=== PATIENT | female | born 1950 | race Caucasian/White ===

== ENCOUNTER 2017-06-17 11:45 | Inpatient (IN) | payer MEDICARE, OTHER ==
[2017-06-17] MEDS ORDERED: Ondansetron INJ* 2 MG/ML VIAL IV ONE (13:15)
[2017-06-17] MEDS ORDERED: NS 0.9% 1000 ML* 1,000 ML IV ONE (13:15)
[2017-06-17] MEDS ORDERED: HYDROmorphone* 1 MG/ML 1 ML CARPUJECT IV ONE (13:15)
[2017-06-17 13:55] LABS: Hematocrit 48 % (35-47); Hemoglobin 16.2 g/dl (12.0-16.0); Mean Corpuscular HGB Conc 34 g/dl (31-36); Mean Corpuscular Hemoglobin 33 pg (27-31); Mean Corpuscular Volume 96 fL (80-97); Mean Platelet Volume 8 um3 (7.4-10.4); Red Blood Count 4.92 10^6/ul (4.0-5.4); Red Cell Distribution Width 14 % (10.5-15); White Blood Count 8.5 10^3/ul (3.5-10.8)
--- NOTE | 2017-06-17 13:56 | RAD ---
Indication: Diffuse abdominal pain. Flat and upright views of the abdomen demonstrates no free air. Fluid-filled stomach is noted. Dilated loop of bowel are noted in the left upper quadrant small bowel with a paucity of gas in the colon. I cannot totally exclude small bowel obstruction. IMPRESSION: Dilated loops of small bowel with air-fluid levels noted. Dilated stomach with fluid. I cannot totally exclude small bowel obstruction as there is a paucity of gas in the colon.
[2017-06-17 14:07] LABS: Albumin 4.1 g/dL (3.2-5.2); BUN/Creatinine Ratio 18.1 (8-20); C Reactive Protein 10.78 mg/L (< 5.00); Calcium 9.4 mg/dL (8.6-10.3); EGFR African American 103.6 (>60); EGFR Non-African American 80.6 (>60); Globulin 2.7 g/dL (2-4); Potassium 3.8 mmol/L (3.5-5.0); Total Protein 6.8 g/dL (6.4-8.9)
[2017-06-17] MEDS ORDERED: Iohexol 300* (CONTRAST) 10 ML SDV IV ONE (14:57)
[2017-06-17] MEDS ORDERED: HYDROmorphone* 1 MG/ML 1 ML CARPUJECT IV SLOW PU PRN (15:44)
[2017-06-17] MEDS ORDERED: Ondansetron INJ* 2 MG/ML VIAL IV PRN (15:45)
[2017-06-17 16:23] LABS: Urine Bacteria Absent (Absent); Urine Bilirubin Negative (Negative); Urine Glucose Negative (Negative); Urine Nitrite Negative (Negative)
--- NOTE | 2017-06-17 16:57 | RAD ---
INDICATION: Abdominal pain since yesterday. Vomiting episode yesterday. Question small bowel obstruction. COMPARISON: June 17, 2017 abdomen radiographs. TECHNIQUE: Multidetector CT images were obtained from the lung bases to the ischial tuberosities with 79 mL Omnipaque 300 IV and oral contrast. Multiplanar reformation. REPORT: Minimal bilateral dependent subsegmental atelectasis. Decreased density of the liver consistent with fatty infiltration. No focal hepatic lesions or biliary dilatation. No CT abnormality of the gallbladder. Mildly atrophic pancreas without suspicious finding. Unremarkable spleen. Negative for CT abnormality of the upper GI. Mid to distal high-grade partial versus complete small bowel obstruction likely relates to a small bowel anastomosis in the LEFT abdomen. At the level of the anastomosis there is a small bowel loop dilated up to 7.4 cm diameter. Associated mild perienteric inflammatory change. Negative for pneumatosis. Decompressed colon with few diverticula without suggestion of diverticulitis. Small volume of nonloculated ascites. Negative for free air. Infra umbilical midline laparotomy scar. No significant hernias evident. Normal adrenal glands. Unremarkable kidneys with symmetric nephrograms and pyelograms no abnormality along the course of the nondilated ureters. Largely decompressed urinary bladder limiting assessment. Post hysterectomy. No visualized adnexal region lesions. Negative for lymphadenopathy. Atherosclerotic plaque of normal diameter abdominal aorta and iliac arteries. Flat decompressed IVC indicating low volume state. Negative for suspicious osseous lesions. IMPRESSION: 1. High-grade partial versus complete small bowel obstruction with suggestion of probable transition point at the level of a small bowel anastomosis in the LEFT abdomen. No discrete obstructing lesion evident. 2. Negative for free air. Small volume of nonloculated ascites. 3. Decompressed IVC indicating low volume state.
[2017-06-17] MEDS ORDERED: KETAMINE HCL* 50 MG/ML 10 ML VIAL ONE (18:15)
[2017-06-17] MEDS ORDERED: fentaNYL* 50 MCG/ML 5 ML VIAL (250 MCG VIAL) ONE (18:15)
[2017-06-17] MEDS ORDERED: Midazolam* 1 MG/ML 5 ML VIAL (5 MG) ONE (18:15)
[2017-06-17] MEDS ORDERED: Atracurium* 10 MG/ML 10 ML VIAL ONE (18:16)
--- NOTE | 2017-06-17 18:52 | HP ---
AMENDED REPORT NOW INCLUDES COSIGNER DESIGNATION - ESIGNED BEFORE ADJUSTMENT ADMISSION HISTORY AND PHYSICAL: DATE OF ADMISSION: 06/17/17 ATTENDING SURGEON: Dr. Bernabe Pinto * (DICTATED BY YANDY HUI) CHIEF COMPLAINT: Abdominal pain. HISTORY OF PRESENT ILLNESS: This is a 67-year-old female with 2 past episodes of small bowel obstruction, both requiring exploratory laparotomy including 1 episode requiring small bowel resection. She states that beginning yesterday afternoon, she began to experience crampy abdominal pain. This persisted through last night and persisted this morning such that she presented to the ED. Pain is across the abdomen with some increase on the left side. She has had nausea, and vomited once at home which she states was bilious and without blood. On a scale of 1 to 10, she describes her pain at peak as being 12, but at present, only 1 after receiving Dilaudid. She feels that the pain is gradually coming back. She had a normal bowel movement yesterday, but since then has passed little or no flatus. She last ate yesterday. Her previous surgical history includes a laparoscopic assisted vaginal hysterectomy. She required exploratory laparotomy in 2004 with what she describes as 12 inches of small bowel resected at that time. She had a second exploratory laparotomy in February of this year in [place], [place], at which time lysis of adhesions was performed. She states that her current symptoms feel somewhat similar to her past episodes. PAST MEDICAL HISTORY: Recurrent small bowel obstruction as noted above. Previously treated for hypertension, but not at the present time. She is treated for hyperlipidemia. She has a past history of depression. She has a history of asthma without recent exacerbations. PAST SURGICAL HISTORY: As described above. The hysterectomy was subtotal, i.e. she still has ovaries and it was for benign disease. She had a prior tubal ligation. No reported surgical or anesthesia complications. CURRENT MEDICATIONS: 1. Lipitor 20 mg once daily. 2. Vitamin D 2000 IU once daily. 3. Lactaid p.r.n. 4. Imodium p.r.n. (does not use frequently). 5. Unspecified bronchodilator p.r.n. (has not needed recently). DRUG ALLERGIES: AMOXICILLIN and BACTRIM, both cause vomiting. MORPHINE does not work for her. FAMILY HISTORY: Noncontributory in terms of anesthesia problems, bleeding or clotting disorder. SOCIAL HISTORY: Patient lives with her daughter and son-in-law and grandchild in [place]. She is here visiting her family near [place], [place]. She is a current smoker of approximately one-half pack per day. She is encouraged to quit. She drinks approximately 1 drink per month. She denies other recreational drug use. REVIEW OF SYSTEMS: General: No recent constitutional symptoms or acute illnesses other than described in the HPI. She did however have an injury to her right fourth toe (fracture) as she was preparing to leave [place] to come here for her visit and has her toes kylie taped and is using a platform walker. Cardiovascular: No chest pain, palpitations, history of NH or angina. Respiratory: No recent exacerbations of her asthma. Active smoking history as noted. GI: As above per HPI. I did not inquire about colonoscopy. : No dysuria or hematuria. ACTIVITIES THERAPIST: She no longer has pelvic exams. She states it has been a few years since her last breast exam and mammogram, but no interval problems reported. Endocrine: No diabetes or thyroid dysfunction. Musculoskeletal: Recent right fourth toe fracture as noted above. Neuro/psych: No current active depression symptoms. PHYSICAL EXAMINATION GENERAL: Well-nourished, slightly built female, in no acute distress though visibly shaking on the ED stretcher. VITAL SIGNS: Weight 130 pounds. Temperature 97.6, blood pressure 153/73, pulse 102, respirations 20, room air saturation 95%. HEENT: Pupils equal, round and reactive. EOMs intact. No conjunctival pallor or scleral icterus. Oropharynx: Mucous membranes dry. No intraoral lesions. NECK: No lymphadenopathy, thyromegaly or masses. LUNGS: Clear to auscultation. No rales or wheezes. HEART: Regular rate and rhythm. No murmur noted. ABDOMEN: Mildly distended, well-healed lower midline incision. Bowel sounds are present with occasional tinkles and rushes. Abdomen is soft with mild-to- moderate tenderness on the left, but without palpable masses or organomegaly. The remainder of the abdomen is relatively soft, nontender. No palpable groin hernias. GENITALIA/RECTAL: Not done. BACK: No spinous process or CVA tenderness. EXTREMITIES: No edema. Platform shoe present on the right. Toes not examined. SKIN: Warm and dry. No suspicious rashes or lesions. LABORATORY DATA: Of note, white blood cell count 8500, hemoglobin 16.2, hematocrit 48. Her electrolytes and renal function are normal. Her lactic acid is normal at 1.2. CRP is mildly elevated at 11. Lipase and liver function tests are normal. Initial plain film was done followed by a CT with contrast showing dilated small bowel loops with air fluid levels on the right side of the abdomen. There is a large 7+ cm dilated loop of small bowel at the point of prior anastomosis with concern for closed loop obstruction. The findings and scan have been reviewed by Dr. Pinto. He had also reviewed the CT directly with the radiologist. IMPRESSION: Small bowel obstruction with concern for closed loop obstruction. PLAN: Exploratory laparotomy. Patient understands the indications for surgery , the risks, benefits and alternatives which will be explained to her by Dr. Pinto. She agrees as planned. YANDY HUI [id number]/[facility] #: [id number] [facility] SYSTEM[facility]
[2017-06-17] MEDS ORDERED: HYDROmorphone* 1 MG/ML 1 ML CARPUJECT ONE ×2 (19:22→20:18)
[2017-06-17] MEDS ORDERED: PROCHLORPERAZINE INJ 5 MG/ML 2 ML VIAL IV PRN (19:29)
[2017-06-17] MEDS ORDERED: Scopolamine 1.5 mg* PATCH ONE (19:30)
[2017-06-17] MEDS ORDERED: Ondansetron INJ* 2 MG/ML VIAL ONE (19:31)
[2017-06-17] MEDS ORDERED: Dexamethasone IV* 4 MG/ML 1 ML (4 MG) ONE (19:31)
[2017-06-17] MEDS ORDERED: Glycopyrrolate IV* 0.2 MG/ML 1 ML VIAL ONE (19:31)
[2017-06-17] MEDS ORDERED: Neostigmine Methylsulfate* 2 MG/2 ML SYRINGE ONE (19:31)
[2017-06-17] MEDS ORDERED: Propofol* 10 MG/ML 20 ML BTL IV PUSH ONE (19:31)
[2017-06-17] MEDS ORDERED: Lidocaine 2% PF * 5 ML VIAL ONE (19:31)
[2017-06-17] MEDS ORDERED: Succinylcholine* 20 MG/ML 10 ML VIAL ONE (19:31)
[2017-06-17] MEDS ORDERED: Metoprolol Tartrate IV* 1 MG/ML 5 ML VIAL ONE (20:01)
[2017-06-17] MEDS ORDERED: fentaNYL* 50 MCG/ML 2 ML VIAL (100 MCG VIAL) ONE (20:18)
[2017-06-17] MEDS: HYDROmorphone* 1 MG/ML 1 ML CARPUJECT IV PRN ×2 (20:19→20:25)
--- NOTE | 2017-06-17 20:21 | PN ---
Progress Note - Progress Note Date of Service: 06/17/17 Note: Brief Operative Report Preop Dx: SBO, closed loop obstruction Postop Dx: same Procedure: Exploratory laparotomy; lysis of adhesions Anesthesia: GET Surgeon: Blair Asst: YANDY Saeed EBL: 100 ml Fluids: 3200 ml LR Drains: none (Intercede (2 sheets) placed) Specimen: none Findings: dictated
[2017-06-17] MEDS: fentaNYL* 50 MCG/ML 2 ML VIAL (100 MCG VIAL) IV PRN ×3 (20:29→21:06)
[2017-06-17] MEDS ORDERED: Nicotine GUM* 2 MG PO PRN (20:31)
[2017-06-17] MEDS ORDERED: Nicotine Inhaler* 10 MG AMP INH PRN (20:31)
[2017-06-17] MEDS ORDERED: HYDROmorphone PCA* 20 MG/20 ML PCA.SYRING ONE (20:48)
[2017-06-17] MEDS: HYDROmorphone PCA* 20 MG/20 ML PCA.SYRING PCA SCH (20:54)
[2017-06-17] MEDS ORDERED: PROCHLORPERAZINE INJ 5 MG/ML 2 ML VIAL ONE (21:04)
[2017-06-18 07:45] LABS: Hematocrit 38 % (35-47); Hemoglobin 12.7 g/dl (12.0-16.0); Mean Corpuscular HGB Conc 33 g/dl (31-36); Mean Corpuscular Hemoglobin 32 pg (27-31); Mean Corpuscular Volume 96 fL (80-97); Mean Platelet Volume 8 um3 (7.4-10.4); Red Blood Count 3.95 10^6/ul (4.0-5.4); Red Cell Distribution Width 14 % (10.5-15)
[2017-06-18 08:01] LABS: BUN/Creatinine Ratio 15.3 (8-20); Calcium 8.4 mg/dL (8.6-10.3); EGFR African American 130.4 (>60); EGFR Non-African American 101.4 (>60)
--- NOTE | 2017-06-18 09:58 | RAD ---
INDICATION: Small bowel obstruction COMPARISON: Similar radiograph June 17, 2017 TECHNIQUE: Supine and upright views of the abdomen were obtained. FINDINGS: Postsurgical findings from the prior radiograph include surgical skin trino overlying the right of midline abdomen and placement of a gastric tube position below the diaphragm. There are persistently dilated loops of small bowel measuring up to 4.8 cm in diameter, reduced from a maximum dimension of 5.2 cm on the previous radiograph. The left lateral decubitus position reveals a small focus of free gas along the nondependent-most portion of the peritoneal cavity. IMPRESSION: Reduced diameter but persistent gas-filled dilated loops of small bowel and postsurgical changes as described above.
--- NOTE | 2017-06-18 13:10 | ED ---
Bruce Pennington Alfonso, scribed for Adam Santos MD on 06/17/17 at 1309 . Abdominal Pain/Female - HPI Summary HPI Summary: This patient is a 67 year old F presenting to [facility] accompanied by sisters with a chief complaint of diffuse abdominal pain since yesterday. The CC is described as waxing and waning. The patient rates the pain 7/10 in severity. Symptoms aggravated by nothing. Symptoms alleviated by nothing. Patient reports nausea, and vomiting (once yesterday). Patient denies urinary symptoms. She has not had a BM today. PMHx includes bowel obstructions (twice possibly secondary to surgical scar tissue). - History of Current Complaint Chief Complaint: EDAbdPain Stated Complaint: ABD PAIN Time Seen by Provider: 06/17/17 12:55 Hx Obtained From: Patient Onset/Duration: Sudden Onset, Lasting Days - yesterday, Still Present Timing: Constant - waxing and waning Severity Initially: Moderate Severity Currently: Moderate Pain Intensity: 7 Pain Scale Used: 0-10 Numeric Location: Diffuse Aggravating Factor(s): Nothing Alleviating Factor(s): Nothing Associated Signs and Symptoms: Positive: Nausea, Vomiting. Negative: Urinary Symptoms Allergies/Adverse Reactions: Allergies Allergy/AdvReac Type Severity Reaction Status Date / Time Morphine Allergy Unknown Verified 06/17/17 17:41 Reaction Details Amoxicillin [From Augmentin] AdvReac Nausea And Verified 06/17/17 17:41 Vomiting Clavulanic Acid AdvReac Nausea And Verified 06/17/17 17:41 [From Augmentin] Vomiting Procaine [From Novocain] AdvReac Nausea And Verified 06/17/17 17:41 Vomiting Sulfamethoxazole AdvReac Nausea And Verified 06/17/17 17:41 w/Trimethoprim Vomiting [From Bactrim] Home Medications: Home Medications Atorvastatin* [Lipitor*] 20 mg PO DAILY 06/17/17 [History Confirmed 06/17/17] Cholecalciferol TAB* [Vitamin D TAB*] 2,000 units PO DAILY 06/17/17 [History Confirmed 06/17/17] PMH/Surg Hx/FS Hx/Imm Hx GI History: Reports: Hx Obstructive Bowel - bowel obstructions (twice possibly secondary to surgical scar tissue). Sensory History: Denies: Hx Deafness Opthamlomology History: Denies: Hx Legally Blind Infectious Disease History: Denies: Traveled Outside the [place] in Last 30 Days - Family History Known Family History: Positive: Other - CVA mother. Cancer. Negative: Cardiac Disease, Diabetes - Social History Alcohol Use: None Substance Use Type: Reports: None Hx Tobacco Use: No Smoking Status (MU): Never Smoked Tobacco Review of Systems Positive: Abdominal Pain, Vomiting, Nausea Positive: no symptoms reported All Other Systems Reviewed And Are Negative: Yes Physical Exam Triage Information Reviewed: Yes Vital Signs On Initial Exam: Initial Vitals Temp Pulse Resp BP Pulse Ox 97.6 F 102 20 153/73 95 06/17/17 11:47 06/17/17 11:47 06/17/17 11:47 06/17/17 11:47 06/17/17 11:47 Vital Signs Reviewed: Yes Appearance: Positive: Well-Appearing, No Pain Distress Skin: Positive: Warm, Skin Color Reflects Adequate Perfusion, Dry Head/Face: Positive: Normal Head/Face Inspection Eyes: Positive: Normal ENT: Positive: Normal ENT inspection Neck: Positive: Supple, Nontender Respiratory/Lung Sounds: Positive: Clear to Auscultation, Breath Sounds Present Cardiovascular: Positive: RRR Abdomen Description: Positive: Soft, Other: - Lower abd tenderness Bowel Sounds: Positive: Hyperactive Musculoskeletal: Positive: Normal Neurological: Positive: Normal, Sensory/Motor Intact, Alert, Oriented to Person Place, Time, CN Intact II-III Psychiatric: Positive: Affect/Mood Appropriate Diagnostics - Vital Signs Vital Signs Temp Pulse Resp BP Pulse Ox 06/17/17 11:47 97.6 F 102 20 153/73 95 - Laboratory Lab Results: Lab Results 06/17/17 06/17/17 06/17/17 Range/Units 13:37 13:37 13:37 WBC 8.5 (3.5-10.8) 10^3/ul RBC 4.92 (4.0-5.4) 10^6/ul Hgb 16.2 H (12.0-16.0) g/dl Hct 48 H (35-47) % MCV 96 (80-97) fL MCH 33 H (27-31) pg MCHC 34 (31-36) g/dl RDW 14 (10.5-15) % Plt Count 275 (150-450) 10^3/ul MPV 8 (7.4-10.4) um3 Neut % (Auto) 70.7 (38-83) % Lymph % (Auto) 19.0 L (25-47) % [place] % (Auto) 9.4 H (1-9) % Eos % (Auto) 0.2 (0-6) % Baso % (Auto) 0.7 (0-2) % Absolute Neuts (auto) 6.0 (1.5-7.7) 10^3/ul Absolute Lymphs (auto) 1.6 (1.0-4.8) 10^3/ul Absolute Monos (auto) 0.8 (0-0.8) 10^3/ul Absolute Eos (auto) 0 (0-0.6) 10^3/ul Absolute Basos (auto) 0.1 (0-0.2) 10^3/ul Absolute Nucleated RBC 0 10^3/ul Nucleated RBC % 0 Sodium 138 (133-145) mmol/L Potassium 3.8 (3.5-5.0) mmol/L Chloride 104 (101-111) mmol/L Carbon Dioxide 25 (22-32) mmol/L Anion Gap 9 (2-11) mmol/L BUN 13 (6-24) mg/dL Creatinine 0.72 (0.51-0.95) mg/dL Est GFR ( Amer) 103.6 (>60) Est GFR (Non-Af Amer) 80.6 (>60) BUN/Creatinine Ratio 18.1 (8-20) Glucose 115 H (70-100) mg/dL Lactic Acid 1.2 (0.5-2.0) mmol/L Calcium 9.4 (8.6-10.3) mg/dL Total Bilirubin 1.00 (0.2-1.0) mg/dL AST 16 (13-39) U/L ALT 14 (7-52) U/L Alkaline Phosphatase 100 (34-104) U/L C-Reactive Protein 10.78 H (< 5.00) mg/L Total Protein 6.8 (6.4-8.9) g/dL Albumin 4.1 (3.2-5.2) g/dL Globulin 2.7 (2-4) g/dL Albumin/Globulin Ratio 1.5 (1-3) Lipase 17 (11.0-82.0) U/L Result Diagrams: 06/18/17 07:21 06/18/17 07:20 Lab Statement: Any lab studies that have been ordered have been reviewed, and results considered in the medical decision making process. - Radiology Abdomen X-Ray Radiology Interpretation Completed By: Radiologist - Dilated loops of small bowel with air-fluid levels noted. Dilated stomach with fluid. I cannot totally exclude small bowel obstruction as there is a paucity of gas in the colon. ED physician has reviewed this radiology report and agrees. - CT A/P CT Interpretation Completed By: Radiologist - 1. High-grade partial versus complete small bowel obstruction with suggestion of probable transition point at the level of a small bowel anastomosis in the LEFT abdomen. No discrete obstructing lesion evident. 2. Negative for free air. Small volume of nonloculated ascites. 3. Decompressed IVC indicating low volume state. ED physician has reviewed this radiology report and agrees. Abdominal Pain Fem Course/Dx - Course Course Of Treatment: Ms. Rivas presented concerned that she was again developing a SBO. Plain films were a little equivocal but suggestive of SBO and Dr. Pinto was contacted. - Diagnoses Provider Diagnoses: SBO (small bowel obstruction) - Provider Notifications Discussed Care Of Patient With: Bernabe Pinto Time Discussed With Above Provider: 14:20 Instructed by Provider To: Other - Consulted Dr. Pinto (surgeon) at 1420 who will see the patient in the ED. Dr. Pinto agrees to admit. Discharge - Discharge Plan Condition: Stable Disposition: ADMITTED TO [facility] The documentation as recorded by the Bruce jung Alfonso accurately reflects the service I personally performed and the decisions made by , Adam Santos MD.
--- NOTE | 2017-06-18 14:00 | OP ---
DATE OF OPERATION: 06/17/17 - ROOM #348 DATE OF : 48 SURGEON: Bernabe Pinto MD. ASSET CARD CLERK: YANDY Angel. ANESTHESIOLOGIST: Dr. Baeza. ANESTHESIA: General anesthetic. PRE-OP DIAGNOSIS: Small bowel obstruction. POST-OP DIAGNOSIS: Small bowel obstruction. OPERATIVE PROCEDURE: Laparotomy, lysis of adhesions. DESCRIPTION OF PROCEDURE: The patient was supine on the operative table. After adequate general anesthetic, compression stockings, Rashaun Hugger Warmer, intravenous antibiotics, the abdomen was prepped with antiseptic and draped in a sterile fashion. The previous incision was re-entered and dissection carried down to the fascia, which was entered sharply. Omentum was identified and adhesions painstakingly taken down until the free peritoneal space could be identified. Most of the small bowel was quite dilated up to about 5 cm. The loop of bowel that was seen on the CT scan in the left abdomen was almost 10 cm across. This was a region of bowel that went under the remainder of loops of bowels and was torsed. The point of torsion was about 15 cm from the ileocecal valve. After freeing up all the adhesions, the bowel was returned to its natural position and everything was flowing through into the cecum nicely. The bowel was perfectly viable. No evidence of ischemia. The operative field was well irrigated with warm saline solution. Free fluid was suctioned out. Interceed was placed below the omentum and above the omentum and fascia was closed with running #1 Polysorb, followed by subcutaneum closed with 2-0 Vicryl and skin with surgical clips followed by sterile dressing. She tolerated the procedure well, was brought to Recovery in good condition. No complications. No drains. No pathologic specimens. Sponge and instrument counts correct. Estimated blood loss is 100 mL. [id number]/[facility] #: [id number] [facility]
--- NOTE | 2017-06-19 09:05 | PN ---
Progress Note - Progress Note Date of Service: 06/19/17 Note: Surgery Ms. Rivas c/o pain with coughing, denies flatus, is hungry. Vital Signs 06/18/17 06/18/17 06/18/17 10:00 11:40 12:00 Temperature 98.5 F Pulse Rate 68 Respiratory 16 16 16 Rate Blood Pressure 118/58 (mmHg) O2 Sat by Pulse 97 97 96 Oximetry 06/18/17 06/18/17 06/18/17 12:53 14:00 15:22 Temperature 97.8 F Pulse Rate 68 Respiratory 16 16 20 Rate Blood Pressure 127/59 (mmHg) O2 Sat by Pulse 97 97 Oximetry 06/18/17 06/18/17 06/18/17 16:00 18:00 19:30 Temperature 98.4 F Pulse Rate 70 Respiratory 16 16 16 Rate Blood Pressure 117/49 (mmHg) O2 Sat by Pulse 97 97 100 Oximetry 06/18/17 06/18/17 06/18/17 19:33 19:36 20:00 Temperature Pulse Rate Respiratory 16 16 16 Rate Blood Pressure (mmHg) O2 Sat by Pulse 95 Oximetry 06/18/17 06/18/17 06/19/17 22:00 23:43 00:00 Temperature 98.2 F Pulse Rate 75 Respiratory 16 18 16 Rate Blood Pressure 113/53 (mmHg) O2 Sat by Pulse 95 97 95 Oximetry 06/19/17 06/19/17 06/19/17 02:00 03:43 04:00 Temperature 98.3 F Pulse Rate 72 Respiratory 16 16 16 Rate Blood Pressure 110/59 (mmHg) O2 Sat by Pulse 95 97 95 Oximetry 06/19/17 06/19/17 06:00 07:23 Temperature 97.6 F Pulse Rate 71 Respiratory 18 16 Rate Blood Pressure 116/57 (mmHg) O2 Sat by Pulse 93 95 Oximetry Abd: good BS, soft, tender near incision. Incision: clean and dry; trino intact. Intake & Output 06/18/17 06/19/17 06/19/17 22:59 06:59 14:59 Intake Total 150 40 Output Total 700 950 Balance -550 -910 Intake: Oral 150 40 Output: Urine 700 950 Other: # Bowel Movements 0 A/P: POD#2 s/p laparotomy, lysis of adhesions, making progress. Will start sips of clears.
[2017-06-19] MEDS ORDERED: Mouth Piece, Nicotine* 1 EACH CARTRIDGE ONE (18:57)
[2017-06-20] MEDS: HYDROmorphone PCA* 20 MG/20 ML PCA.SYRING PCA SCH (04:01)
[2017-06-20] MEDS ORDERED: Ibuprofen TAB* 600 MG PO PRN (09:19)
[2017-06-20] MEDS ORDERED: HYDROcodone/ACETAMIN 5-325 MG* 1 TAB PO PRN (09:19)
[2017-06-20] MEDS ORDERED: Acetaminophen TAB* 325 MG PO PRN (09:20)
[2017-06-20] MEDS: CMC: Lactase Enzyme (NF) 3,000 UNIT TAB PO SCH ×4 (09:44→17:30)
[2017-06-20] MEDS ORDERED: Scopolomine PATCH Remove* 1 NOTE MISC PATCH OFF ONE (19:30)
[2017-06-21 07:59] VITALS: BP 148/72
[2017-06-21] MEDS: CMC: Lactase Enzyme (NF) 3,000 UNIT TAB PO SCH ×2 (08:58→12:45)
--- NOTE | 2017-06-21 13:26 | PN ---
Progress Note - Progress Note Date of Service: 06/21/17 Note: Surgery Progress: S: POD #4. Seen earlier this a.m. by Dr. Pinto. Doing well. Tolerating diet. Has had BM. Pain under good control w/o narcotics. Planning to drive to [place], then fly back to [place], [place] next week. O: Vital Signs - 8 hr 06/21/17 06/21/17 07:22 08:00 Temperature 98.0 F Pulse Rate 69 Respiratory 16 16 Rate Blood Pressure 148/72 (mmHg) O2 Sat by Pulse 99 99 Oximetry Intake and Output Last 24 Hours 06/19/17 06/20/17 06/21/17 06/22/17 06:59 06:59 06:59 06:59 Intake Total 3167 1910 2765 320 Output Total 2100 5150 4500 550 Balance 1067 -3240 -1735 -230 Weight 130 lb Intake: IV Fluids 2927 1000 1390 LR 1390 Oral 215 548 1836 320 Output: NG Tube Drainage Amount 100 Urine 1750 5150 4500 550 [place] 250 Other: # Bowel Movements 0 0 0 Estimated Stool Amount Medium Heart: reg Lungs: clear Abd: midline incision healing well; trino intact; no s/sx of infection; soft; min incisional tenderness Extr: no edema A: s/p ex lap, SARA for SBO; doing well P: discharge today; instructions reviewed. She will make an appointment with her surgeon in [place] for followup and staple removal.
--- NOTE | 2017-06-21 15:36 | DS ---
CC: Dr. Chace Santana, [address], [address], [place] [address], phone ( [phone] * DATE OF ADMISSION: 06/17/2017. DATE OF DISCHARGE: 06/21/2017. ATTENDING SURGEON: Dr. Bernabe Pinto * (YANDY Angel dictating). HOSPITAL COURSE: Please refer to admission history and physical for admission details. The patient was taken to the operating room the evening of 06/17/2017 for small bowel obstruction with concern for closed loop obstruction by Dr. Pinto. She underwent exploratory laparotomy with lysis of adhesions. There was a segment of distal small bowel at the prior anastomosis that was torsed, but eventually everything was able to be reduced and no resection was required. Interceed was placed at the time of closure. The patient did well postoperatively with gradual return of bowel function and as of the morning of discharge, she was no longer requiring any narcotics. PHYSICAL EXAMINATION THE MORNING OF DISCHARGE: Vital Signs: Temperature 98, blood pressure 148/72, pulse 69, respirations 16, saturation 99 percent on 2 liters. Heart: Regular rate and rhythm. Lungs clear to auscultation, no rales or wheezes. Abdomen: Healing midline incision without evidence of infection. Abdomen is otherwise soft with primarily mild incisional tenderness. There is scant dry drainage on her dressing which will be replaced after she showers. IMPRESSION: Status post exploratory laparotomy with lysis of adhesions for small bowel obstruction, doing well. PLAN: Discharge today. She plans to drive with family to [place] and then early next week she has a flight back to [place], [place]. She will have her trino removed by the surgical office in [place]. She has our contact information if there are any problems in the interim. A note was written to assist her in terms of her flight and TSA arrangements. YANDY ANGEL [id number]/[facility] #: [id number] [facility]
== END 2017-06-21 13:55 | disposition home or self-care (01) | DRG 337 ==
LOC: ED 11:45 → SSU 15:38 → OBSVTOIN 06-18 10:00
PROVIDERS: ADMIT Surgery; ATTEND Surgery
PROC: 0DN80ZZ Release Small Intestine, Open Approach (ICD-10-PCS; principal; 2017-06-17 17:30)
DX: K56.5 Intestinal adhesions [bands] with obstruction (postinfection) (principal); E78.5 Hyperlipidemia, unspecified; J45.909 Unspecified asthma, uncomplicated; Z88.4 Allergy status to anesthetic agent; Z88.3 Allergy status to other anti-infective agents; Z88.5 Allergy status to narcotic agent
CPT/HCPCS: 36415; 74020; 74177; 80048; 80053; 81003; 81015; 83605; 83690; 85025; 86140; A9270-GY; J0330; J0780; J1100; J1170; J2250; J2270; J2405; J2543; J2704; J3010; Q9967